=== PATIENT | male | born 1935 | race Caucasian/White ===

== ENCOUNTER 2019-02-12 11:34 | Day surgery (SDC) | payer MEDICARE ==
[~2019-02-12] VITALS: Ht 172.7 cm; Wt 84.8 kg
[2019-02-12] VITALS (9 sets, daily range): BP systolic 116–158; BP diastolic 58–82; PULSE 71–80; TEMP 97.6–98.4
[2019-02-12] MEDS ORDERED: CENTRUM SILVER1 CTB PO (12:42)
[2019-02-12] MEDS ORDERED: ZYRTEC 10MG10 MG PO (12:43)
[2019-02-12] MEDS ORDERED: PRILOSEC 20MG20 MG PO (12:43)
[2019-02-12] MEDS ORDERED: DITROPAN XL10 MG PO (12:44)
[2019-02-12] MEDS ORDERED: SINGULAIR 110 MG/TAB PO (12:45)
[2019-02-12] MEDS ORDERED: LOTENSIN40 MG PO (12:45)
[2019-02-12] MEDS ORDERED: COUMADIN 5MG5 MG/TAB PO (12:46)
[2019-02-12] MEDS ORDERED: COUMADIN 22.5 MG/TAB PO (12:47)
[2019-02-12] MEDS ORDERED: INCRUSE EL62.5 MCG/A IH (12:48)
[2019-02-12] MEDS ORDERED: RT ADVAIR 228 DISKUS IH (12:48)
--- NOTE | 2019-02-12 13:26 | NUR ---
TO RM AT 1228- CALL LIGHT IN REACH DAUGHTER AND AT BEDSIDE.
--- NOTE | 2019-02-12 16:15 | NUR ---
PATIENT ARRIVED TO ROOM 345 VIA BED FROM PACU. PATIENT SETTELED INTO ROOM. PATIENT IS A&OX4. POST-OP VSS. PATIENT PENIAL DRESSING IS CD&I. KUMARI CATHETER TO DEPENDENT DRAINAGE WITH SMALL AMOUNTS OF CLEAR YELLOW URINE PRESENT IN KUMARI BAG. IV FLUIDS INFUSING TO LEFT HAND IV VIA GRAVITY FLOW TUBING. 02 AT 4L VIA OXYMASK. SCD'S TO BLE. CALL LIGHT WITHIN REACH. PATIENT DENIES ANY OTHER NEEDS AT THIS TIME.
--- NOTE | 2019-02-12 16:35 | NUR ---
PATIENT GIVEN 2 TABLETS OF PO PRN PERCOCET FOR PAIN RATED A 10/10 ON A 0-10 SCALE. WILL CONTINUE TO MONITOR.
--- NOTE | 2019-02-12 17:30 | NUR ---
DR. JACKSON CALLED AND NOTIFIED OF PATIENT HAVING SPASMS IN THE TESTICLES. OKAY TO GIVE PATIENT DISCONTINUED B&O SUPPOSITORY IN EMAR, TORB DR. JACKSON TO THIS NURSE.
--- NOTE | 2019-02-12 17:30 | NUR ---
PATIENT GIVEN B&O SUPPOSITORY FOR TESITICULAR SPASMS. TORP FROM DR. JACKSON TO THIS NURSE.
--- NOTE | 2019-02-12 17:35 | NUR ---
PATIENT GIVEN 2 TABLETS OF PO PRN PERCOCET FOR PAIN RATED A 10/10 ON A 0-10 SCALE. WILL CONTINUE TO MONITOR.
--- NOTE | 2019-02-12 18:30 | NUR ---
PATIENT O2 SATS ABOVE 96% ON OXYMASK AT 4L. PATIENT SWITCHED TO NASAL CANNULA AT 3L. NO BLEEDING AT SURGICAL SITE. PATIENT GIVEN IV LOVENOX PER DR. JACKSON'S ORDERS. WILL CONTINUE TO MONITOR.
--- NOTE | 2019-02-12 19:00 | NUR ---
REPORT GIVEN TO CORNELIUS HOUSTON.
--- NOTE | 2019-02-12 20:00 | NUR ---
Patient in bed, is alert and oriented x4. Has oxygen on at 3L/nc. Has gauze to penis with red drainage noted, wearing mesh panties. Balderrama to BSD with yellow urine. Denies pain at this time. Reports pain was mostly in testicle area.
[2019-02-13 00:32] VITALS: BP 121/39; PULSE 78; TEMP 97.7
--- NOTE | 2019-02-13 02:59 | NUR ---
Patient awake. Denies pain. Repositioned in bed. Balderrama with yellow urine.
[2019-02-13 04:04] VITALS: BP 134/50; PULSE 78; TEMP 98.9
--- NOTE | 2019-02-13 07:00 | NUR ---
Report received from CORNELIUS Warner. PT in bed resting with at bedside. Denies needs, will make coffee and provide per request
[2019-02-13 08:03] VITALS: BP 129/52; PULSE 85; TEMP 98.4
--- NOTE | 2019-02-13 08:57 | NUR ---
SW attempted to meet with the pt but the pt was not in the room. SW will attempt at a later time.
--- NOTE | 2019-02-13 11:01 | NUR ---
Assessment charted. Pt has some pain at incision site, gave PRN percocet per reqeust. Pt up to bathroom for bm and had some drainage from incision site. Catheter draining clear yellow urine to DD via bag at side of bed. Discussed demonstrated and return demonstration for leg bag teaching and catheter care going home. Discharge packet reviewed, take home script, f/u will call on friday. Pt wants to wait a few hours until discharging, discussed need to give one more demonstration regarding leg bag transfer to large catheter bag. Will continue to monitor.
[2019-02-13 11:54] VITALS: BP 138/59; PULSE 72; TEMP 99
--- NOTE | 2019-02-13 13:32 | NUR ---
PRASANNA met with the patient and his , Guido to discuss a discharge plan. The pt and Christelley live in [place]. The pt does not use DME and reports independence with ADLs. The pt's PCP is Dr. Vargas and the pt receives his medication from [facility] in [place]. The pt reports no difficulties obtaining his medications. The pt does not have advanced directives in the EMR but reports he does have them completed. The pt plans to return home upon discharge. There are no additional needs at this time.
--- NOTE | 2019-02-13 14:04 | NUR ---
Supervisor [employer] offered prayer with patient while family was in room.
--- NOTE | 2019-02-13 15:42 | NUR ---
Discharge packet reviewed earlier in the day, pt demonstrated ability to transfer back to leg bag from large cerrato bag. INT dc'd, tip intact. Pt left with all belongings. Gave supplies for cerrato care, mesh panties, gauze at home. Pt left with all belongings. Escorted out via w/c with family. Son to drive home, criteria met.
== END 2019-02-13 15:45 | disposition home or self-care (01) ==
LOC: SDCO 11:34 → SURG 16:15 → SDCO 02-13 15:45
DX: C60.1 Malignant neoplasm of glans penis (principal); Z85.46 Personal history of malignant neoplasm of prostate; Z87.891 Personal history of nicotine dependence; Z91.041 Radiographic dye allergy status; Z86.010 Personal history of colon polyps; Z86.718 Personal history of other venous thrombosis and embolism; Z79.01 Long term (current) use of anticoagulants; Z79.899 Other long term (current) drug therapy; D68.59 Other primary thrombophilia; Z90.79 Acquired absence of other genital organ(s); J44.9 Chronic obstructive pulmonary disease, unspecified; Z86.711 Personal history of pulmonary embolism; K21.9 Gastro-esophageal reflux disease without esophagitis; Z86.73 Personal history of transient ischemic attack (TIA), and cerebral infarction without residual deficits; Z87.19 Personal history of other diseases of the digestive system; Z90.49 Acquired absence of other specified parts of digestive tract
CPT/HCPCS: OP; J0360; J0690; J1170; J2405; J2704; J3010; J7120

== ENCOUNTER → 2019-05-19 | Outpatient (CLI) | payer MEDICARE ==
[~2019-05-19] MED LIST: CENTRUM SILVER1 CTB PO; COUMADIN 22.5 MG/TAB PO; COUMADIN 5MG5 MG/TAB PO; DITROPAN XL10 MG PO; INCRUSE EL62.5 MCG/A IH; LOTENSIN40 MG PO; PRILOSEC 20MG20 MG PO; RT ADVAIR 228 DISKUS IH; SINGULAIR 110 MG/TAB PO; ZYRTEC 10MG10 MG PO
== END ==
LOC: COL.RAD 10:21
DX: C60.1 Malignant neoplasm of glans penis (principal); R91.8 Other nonspecific abnormal finding of lung field; J43.9 Emphysema, unspecified; I71.4 Abdominal aortic aneurysm, without rupture; Z90.79 Acquired absence of other genital organ(s); Z85.46 Personal history of malignant neoplasm of prostate

== ENCOUNTER 2020-03-13 12:55 | Day surgery (SDC) | payer MEDICARE ==
[~2020-03-13] VITALS: Ht 172.7 cm; Wt 83.2 kg
[2020-03-13] MEDS ORDERED: ALPHAGAN 15 ML15 ML OU (13:44)
[2020-03-13] MEDS ORDERED: XALATAN EYE DROPS OU (13:44)
[2020-03-13 14:01] VITALS: BP 163/84; PULSE 80; TEMP 98.8
[2020-03-13 15:57] VITALS: BP 139/67; PULSE 83; TEMP 98.3
--- NOTE | 2020-03-13 15:57 | NUR ---
Patient arrives back to [facility] drowsy. Patient monitor applied, vitals stable. Catheter in place with leg bag on right leg, gauze in place at tip of urethra with some blood noted. Dr King on the phone with patient's family.
[2020-03-13 16:15] VITALS: BP 138/71; PULSE 83
--- NOTE | 2020-03-13 16:15 | NUR ---
Patient more awake at this time and tolerating water without any nausea. Patient does complain of lower back pain. Heated blanket put on low back and patient repositioned.
[2020-03-13 16:30] VITALS: BP 148/76; PULSE 77
[2020-03-13 16:45] VITALS: BP 167/80; PULSE 72
--- NOTE | 2020-03-13 16:45 | NUR ---
Patient's catheter emptied at this time 400ml of clear light yellow urine. Stat lock applied to patient's right leg to help secure catheter. Patient given large catheter bag for night time and educated on how to use/change bags, patient voices understanding. Dressing at tip of urethra also changed at this time. Dr King notified that gauze is completely saturated. No active bleeding noted when gauze was removed. New gauze dressing applied, and patient educated on how to change dressing at home, patient voices understanding.
--- NOTE | 2020-03-13 17:15 | NUR ---
Dismissal instructions gone over with patient, patient voices understanding and all questions answered.
--- NOTE | 2020-03-13 17:25 | NUR ---
Patient discharged to private vehicle at patient enterance via wheelchair without any problems. Patient and family thank staff for services.
== END 2020-03-13 17:25 | disposition home or self-care (01) ==
LOC: SDCO 12:55
DX: N35.911 Unspecified urethral stricture, male, meatal (principal); I10 Essential (primary) hypertension; D68.59 Other primary thrombophilia; J44.9 Chronic obstructive pulmonary disease, unspecified; K21.9 Gastro-esophageal reflux disease without esophagitis; M19.90 Unspecified osteoarthritis, unspecified site; Z90.79 Acquired absence of other genital organ(s); Z85.49 Personal history of malignant neoplasm of other male genital organs; Z86.718 Personal history of other venous thrombosis and embolism; Z85.46 Personal history of malignant neoplasm of prostate; Z79.01 Long term (current) use of anticoagulants; Z91.041 Radiographic dye allergy status; Z87.891 Personal history of nicotine dependence; Z99.81 Dependence on supplemental oxygen; Z86.73 Personal history of transient ischemic attack (TIA), and cerebral infarction without residual deficits
CPT/HCPCS: C1726; C1769; J2704; J7120

== ENCOUNTER → 2021-08-30 | Outpatient (CLI) | payer MEDICARE ==
[~2021-08-30] VITALS: Ht 172.7 cm; Wt 78.7 kg
[~2021-08-30] MED LIST changes: +ALPHAGAN 15 ML15 ML OU; +XALATAN EYE DROPS OU
[2021-08-30 12:18] VITALS: BP 163/77; PULSE 71; TEMP 97.5
[2021-08-30 13:00] VITALS: BP 170/68; PULSE 78
== END ==
LOC: COL.RAD 11:19
DX: C60.1 Malignant neoplasm of glans penis (principal)
CPT/HCPCS: 32109

== ENCOUNTER → 2021-09-18 | Outpatient (CLI) | payer MEDICARE | LOC: COL.RAD 12:16 | DX: C61 Malignant neoplasm of prostate (principal); C60.1 Malignant neoplasm of glans penis; K76.89 Other specified diseases of liver ==

== ENCOUNTER 2021-10-19 10:22 | Day surgery (SDC) | payer MEDICARE ==
[~2021-10-19] VITALS: Ht 170.2 cm; Wt 78.3 kg
[2021-10-19 11:14] VITALS: BP 139/85; PULSE 83; TEMP 97.9
[2021-10-19 13:35] VITALS: BP 176/86; PULSE 87; TEMP 97.3
--- NOTE | 2021-10-19 13:35 | NUR ---
The patient arrived back to [facility] from the operating room at this time. The patient appears drowsy but arouses easily to his name. The patient's family is at his bedside at his time. Post operative vital signs were started at this time. The patient has a surgical glue in place to his incisions sites that appear clean, dry and intact. The patient was given some water at this time. Call light is within reach. Will continue to monitor the patient.
[2021-10-19 13:50] VITALS: BP 172/84; PULSE 81
--- NOTE | 2021-10-19 13:50 | NUR ---
The patient appears to be tolerating the water well and agrees to try some chocolate pudding at this time. The patient's family remains at his bedside. Vital signs appear stable. Will continue to monitor the patient.
[2021-10-19 14:05] VITALS: BP 164/69; PULSE 79
--- NOTE | 2021-10-19 14:05 | NUR ---
The patient appears to be tolerating the food and drink well. The patient has weaned off the oxygen and placed on room air at this time. The patient does wear oxygen at home at 2.5L at night.
[2021-10-19 14:20] VITALS: BP 151/66; PULSE 87
--- NOTE | 2021-10-19 14:20 | NUR ---
Discharge instructions were reviewed with the patient and his family at this time. They verbalized understanding and have no questions for the nurse at this time. The patient's IV to his right wrist was removed and a pressure dressing was applied to the site. The nurse instructed the patient to get dressed and notify the staff when he is ready to be escorted out.
--- NOTE | 2021-10-19 14:35 | NUR ---
The patient was escorted out via wheelchair to a private vehicle by CORNELIUS Mckeon. The patient's belongings and discharge paperwork were sent with him. The patient's family is present to drive him home.
== END 2021-10-19 14:35 | disposition home or self-care (01) ==
LOC: SDCO 10:22
DX: C60.9 Malignant neoplasm of penis, unspecified (principal); I10 Essential (primary) hypertension; J44.9 Chronic obstructive pulmonary disease, unspecified; K21.9 Gastro-esophageal reflux disease without esophagitis; H40.9 Unspecified glaucoma; Z86.73 Personal history of transient ischemic attack (TIA), and cerebral infarction without residual deficits; Z98.890 Other specified postprocedural states; Z79.01 Long term (current) use of anticoagulants; Z79.899 Other long term (current) drug therapy; Z87.891 Personal history of nicotine dependence; Z85.46 Personal history of malignant neoplasm of prostate
CPT/HCPCS: C1788; J0690; J1644; J2405; J2704; J3010; J7120

== ENCOUNTER → 2021-12-21 | Outpatient (CLI) | payer MEDICARE | LOC: COL.VAS 11:24 | DX: I82.411 Acute embolism and thrombosis of right femoral vein (principal); I82.491 Acute embolism and thrombosis of other specified deep vein of right lower extremity ==

== ENCOUNTER 2022-02-22 12:57 | Day surgery (SDC) | payer MEDICARE ==
[~2022-02-22] VITALS: Ht 170.2 cm; Wt 76.6 kg
[2022-02-22] MEDS ORDERED: ELIQUIS 5MG PO (13:55)
[2022-02-22 14:47] VITALS: BP 149/70; PULSE 76; TEMP 97.5
[2022-02-22 16:35] VITALS: BP 141/56; PULSE 80; TEMP 98.2
--- NOTE | 2022-02-22 16:35 | NUR ---
PT TO [facility] FROM OR. RECEIVED REPORT. VS OBTAINED. CALL LIGHT WITHIN REACH.
[2022-02-22 16:50] VITALS: BP 147/84; PULSE 80
--- NOTE | 2022-02-22 16:50 | NUR ---
PT TOLERATING APPLE JUICE.
[2022-02-22 17:05] VITALS: BP 139/61; PULSE 72
[2022-02-22 17:20] VITALS: BP 143/78; PULSE 72
--- NOTE | 2022-02-22 17:20 | NUR ---
PT DOING WELL. STATES HE IS READY FOR DISCHARGE.
--- NOTE | 2022-02-22 17:35 | NUR ---
400CC EMPTIED FROM KUMARI CATHETER.
--- NOTE | 2022-02-22 17:40 | NUR ---
DISCHARGE EDUCATION COMPLETED WITH PT AND HIS FAMILY. VERBALIZED UNDERSTANDING OF HOME AND FOLLOW UP CARE. ALL QUESTIONS ANSWERED. DISCHARGE PAPERWORK GIVEN TO PT.
--- NOTE | 2022-02-22 17:55 | NUR ---
PT OFF UNIT PER WHEELCHAIR. PT DISCHARGE TO HOME WITH FAMILY PER PERSONAL VEHICLE.
== END 2022-02-22 17:55 | disposition home or self-care (01) ==
LOC: SDCO 12:57
DX: N35.919 Unspecified urethral stricture, male, unspecified site (principal); C60.1 Malignant neoplasm of glans penis; Z85.46 Personal history of malignant neoplasm of prostate; Z87.891 Personal history of nicotine dependence; Z79.899 Other long term (current) drug therapy; Z86.73 Personal history of transient ischemic attack (TIA), and cerebral infarction without residual deficits
CPT/HCPCS: C1769; J0690; J2704; J7120

== ENCOUNTER 2022-10-29 10:09 | Day surgery (SDC) | payer MEDICARE ==
[~2022-10-29] VITALS: Ht 170.2 cm; Wt 73.6 kg
[2022-10-29] VITALS (7 sets, daily range): BP systolic 140–156; BP diastolic 61–73; PULSE 64–72; TEMP 97
[~2022-10-29 10:09] MED LIST changes: +ELIQUIS 5MG PO
[2022-10-29] MEDS ORDERED: TOPROL XL 25MG25 MG PO (11:26)
[2022-10-29] MEDS ORDERED: DUPIXENT200 MG/1.1 SQ (11:27)
--- NOTE | 2022-10-29 15:30 | NUR ---
1325 RETURNS TO ROOM 5 PER CART. DROWSY, AROUSES EASILY TO VERBAL STIMULI. FAMILIARIZED WITH SURROUNDINGS. RESP UNLABORED. HOB ELEVATED 30 DEGREES. VITAL SIGNS OBTAINED. ABD SOFT. REPORTS DISCOMFORT 4/10. NO DRAINAGE OBSERVED AT [facility]. KUMARI CATHETER PATENT URINE CLIEAR, LIGHT YELLOW. CALL LIGHT AT SIDE. 1341 PO PAIN MED GIVEN, PATIENT STATES "I DON'T THINK IT WOULD HURT" WHEN QUESTIONED ABOUT DISCOMFORT AND NEED FOR PO MED. 1400 TOLERATES PO APPLESAUCE, SALTINES AND WATER WITHOUT NAUSEA 1420 PATIENT MORE AWAKE, CONVERSES APPROPRIATELY. 1445 REPORTS INCREASED COMFORT. SON AND HERE. SURGICAL SITE WITHOUT DRAINAGE. PAD IN PLACE, KUMARI PATENT 1500 DISCHARGE INSTRUCTIONS REVIEWED. PATIENT AND FAMILY VERBALIZE UNDERSTANDING. COPY PROVIDED IN DISCHARGE FOLDER. INSTRUCTIONS ON CATH CARE PROVIDED, IN ADDITION TO PROVIDED PATIEN WITH LEG BAG IF DESIRE TO CHANGE 1515 PATIENT SITS ON EDGE OF BED. DRESSES WITH MINIMAL ASSIST OF FAMILY
== END 2022-10-29 15:30 | disposition home or self-care (01) ==
LOC: SDCO 10:09
DX: N47.1 Phimosis (principal); N99.113 Postprocedural anterior bulbous urethral stricture, male; I10 Essential (primary) hypertension; K21.9 Gastro-esophageal reflux disease without esophagitis; Z85.49 Personal history of malignant neoplasm of other male genital organs; Z87.891 Personal history of nicotine dependence
CPT/HCPCS: J0690; J2270; J2405; J2704; J3010; J7120